=== PATIENT | female | born 1970 | race American Indian/Alaskan Native ===

== ENCOUNTER 2017-11-18 13:33 | Emergency (ER) | payer SELFPAY ==
--- NOTE | 2017-11-18 15:51 | XRay Report ---
LEFT KNEE RADIOGRAPHS INDICATION: Pain, swelling, redness. COMPARISON: None similar. FINDINGS: AP, lateral and oblique left knee radiographs demonstrate moderate to severe medial and patellofemoral compartment narrowing with degenerative spurring. Small suprapatellar effusion. CONCLUSION: Moderate to severe osteoarthritic changes, advanced for the patient's age, as described. Please correlate. Thank you for the opportunity to participate in this patient's care.
--- NOTE | 2017-11-18 19:24 | Emergency Department Report ---
ED Extremity Problem HPI - General Chief complaint: Extremity Problem,Nontraumatic Stated complaint: LEFT SWOLLEN LEG WITH TINGLING Time Seen by Provider: 11/18/17 18:50 Source: patient Mode of arrival: Ambulatory Limitations: No Limitations - History of Present Illness Initial comments: This is a 47-year-old female here with left knee pain 1 week. She has a history of total knee replacements her right knee due to arthritis. She denies any injury. She reports swelling with some redness. She says she took over-the -counter pain medication without any relief. Pain is 8 out of 10 and worse with flexion and extension. Pain is achy. Better at rest then. Patient is here to be evaluated. MD Complaint: joint swelling, joint paint Onset/Timin -: week(s) Location: left, knee History of Same: Yes -: No myalgia, Yes arthralgia, No fever, No associated dyspnea, No associated chest pain Radiation: none Severity scale (0 -10): 8 Quality: aching Consistency: constant Improves with: rest Worsens with: weight bearing, walking, exertion Associated Symptoms: arthralgias. denies: chest pain, shortness of breath, fever, myalgias, rash - Related Data Previous Rx's Medication Instructions Recorded Last Taken Type oxyCODONE /ACETAMINOPHEN [Percocet 1 tab PO Q6HR PRN #30 tablet 09/19/15 Unknown Rx 5/325] traMADol [Ultram] 50 mg PO Q6HR PRN #12 tablet 11/18/17 Unknown Rx Allergies Allergy/AdvReac Type Severity Reaction Status Date / Time latex AdvReac rash, Verified 09/19/15 11:52 itching, burning ED Review of Systems ROS: Stated complaint: LEFT SWOLLEN LEG WITH TINGLING Other details as noted in HPI Constitutional: denies: chills, fever Eyes: denies: eye pain, eye discharge Respiratory: denies: cough, shortness of breath, SOB with exertion, SOB at rest , stridor, wheezing Cardiovascular: denies: chest pain, palpitations, edema, syncope Gastrointestinal: denies: abdominal pain, nausea, vomiting, diarrhea Genitourinary: denies: urgency, dysuria, discharge Musculoskeletal: joint swelling, arthralgia. denies: back pain, myalgia Skin: denies: rash, lesions Neurological: abnormal gait (patient says she is limping on the left lower extremity). denies: headache, weakness, numbness, paresthesias, vertigo ED Past Medical Hx - Past Medical History Previous Medical History?: Yes Hx Arthritis: Yes - Surgical History Past Surgical History?: Yes Additional Surgical History: R knee replacement - Family History Family history: hypertension - Social History Smoking Status: Never Smoker Substance Use Type: Alcohol - Medications Home Medications: Home Medications Medication Instructions Recorded Confirmed Last Taken Type oxyCODONE /ACETAMINOPHEN [Percocet 1 tab PO Q6HR PRN #30 tablet 09/19/15 Unknown Rx 5/325] traMADol [Ultram] 50 mg PO Q6HR PRN #12 tablet 11/18/17 Unknown Rx ED Physical Exam - General Limitations: No Limitations General appearance: alert, in no apparent distress - Head Head exam: Present: atraumatic, normocephalic, normal inspection - Eye Eye exam: Present: normal appearance, PERRL, EOMI Pupils: Present: normal accommodation - ENT ENT exam: Present: normal exam, normal orophraynx, mucous membranes moist - Neck Neck exam: Present: normal inspection, full ROM. Absent: tenderness, lymphadenopathy - Respiratory Respiratory exam: Present: normal lung sounds bilaterally. Absent: respiratory distress, chest wall tenderness - Cardiovascular Cardiovascular Exam: Present: regular rate, normal rhythm, normal heart sounds. Absent: systolic murmur, diastolic murmur, rubs, gallop - GI/Abdominal GI/Abdominal exam: Present: soft, normal bowel sounds - Extremities Exam Extremities exam: Present: normal inspection - Back Exam Back exam: Present: normal inspection - Neurological Exam Neurological exam: Present: alert, oriented X3 - Psychiatric Psychiatric exam: Present: normal affect, normal mood - Skin Skin exam: Present: warm, dry, intact, normal color. Absent: rash ED Course Vital Signs 11/18/17 14:44 Temperature 98.4 F Pulse Rate 104 H Respiratory 18 Rate Blood Pressure 157/96 O2 Sat by Pulse 98 Oximetry Vital Signs 11/18/17 11/18/17 14:44 20:43 Temperature 98.4 F Pulse Rate 104 H 82 Respiratory 18 Rate Blood Pressure 157/96 O2 Sat by Pulse 98 Oximetry - Reevaluation(s) Reevaluation #1: 11/18/17 20:43 She received Motrin 800 mg by mouth 1 in emergency room. See procedure note for details on splinting. - Orthopedic Splinting/Casting Injury #1 Side: left Lower Extremity Injury Location: knee Lower Extremity Immobilizer: Urban wrap ED Medical Decision Making - Radiology Data Radiology results: report reviewed - Medical Decision Making ED course: This is a 47-year-old patient here for complaints of left knee pain with swelling over week time. She stated over the Klonopin medication without any relief. She has a history of arthritis with right total knee replacement in the past. She denies any fever or chills. She is here to be evaluated She was seen and examined by myself and she has limited range of motion to left knee due to pain and swelling. No difference in temperature when compared to right knee. Patient is afebrile. Her heart rate is stable at 82 bpm from 104 bpm. Patient had x-ray of left knee 3 views which was dictated by radiologist and report reviewed by myself and showed degenerative joint disease with mild effusion. No acute findings. I discussed results with patient and she voiced understanding. Patient was given Motrin which helped her pain in the emergency room. No concern for septic arthritis patient does not have any variation in temperature to knees, no erythema. No fever. A/P 1: Degenerative arthritis left knee-referred to orthopedic doctor 2: Arthralgia left knee-Motrin 800 mg by mouth 1 in the emergency room which relieved her pain and was sent home on Ultram 3: Mild left knee effusion-Urban wrap, referred to orthopedics Educated on medication, diagnosis and treatment plan. She voiced understanding. Referral orthopedic doctor Rice maria luisa Patient discharged home in stable condition. Vital signs are stable she is afebrile. She is nontoxic in appearance. Patient to follow-up with her primary care physician and orthopedic doctor in 2 days and/or return to emergency room if her symptoms worsens. She voiced understanding. Discharged home in stable condition with prescription for Ultram. Critical care attestation.: If time is entered above; I have spent that time in minutes in the direct care of this critically ill patient, excluding procedure time. ED Disposition Clinical Impression: Knee effusion, left Degenerative joint disease of left knee Qualifiers: Osteoarthritis type: unspecified Qualified Code(s): M17.12 - Unilateral primary osteoarthritis, left knee Knee pain, left Qualifiers: Chronicity: acute Qualified Code(s): M25.562 - Pain in left knee Disposition: DC-01 TO HOME OR SELFCARE Is pt being admited?: No Does the pt Need Aspirin: No Condition: Stable Instructions: Knee Effusion (ED), Osteoarthritis (ED), Knee Exercises (GEN), Knee Pain (ED), RICE Therapy (ED) Additional Instructions: See discharge instruction in Rice therapy Follow up with orthopedic doctor as instructed Follow up Primary care physician in 2 days Take Ultram for pain but please do not drive or operate heavy machinery while taking this medication as it causes drowsiness. If his symptoms worsen, return to the emergency room Prescriptions: traMADol [Ultram] 50 mg PO Q6HR PRN #12 tablet PRN Reason: Pain Referrals: PRIMARY CARE, [Primary Care Provider] - 3-5 Days Forms: Work/School Release Form(ED)
[2017-11-18] MEDS ORDERED: MOTRIN PO ONE (20:38)
[2017-11-18 20:47] VITALS: BP 152/96
== END 2017-11-18 21:00 | disposition home or self-care (01) ==
LOC: ED 13:33
DX: M17.12 Unilateral primary osteoarthritis, left knee (principal); M25.462 Effusion, left knee; Z91.040 Latex allergy status
CPT/HCPCS: 99284

== ENCOUNTER 2019-06-18 18:34 | Emergency (ER) | payer SELFPAY ==
[2019-06-18 18:50] VITALS: BP 219/136
--- NOTE | 2019-06-18 18:50 | Emergency Department Report ---
Chief Complaint: Psych Stated Complaint: SUICIDAL THOUGHTS - HPI History of Present Illness: 49 y/o F p/w a cc of SI. Pt states for several weeks she's had SI. Pt has plan to overdose on "pills" or "jump off of something." Pt denies any actual attempt at harming herself - Exam Vital Signs: Vital Signs 06/18/19 18:44 Temperature 98.5 F Pulse Rate 111 H Respiratory 40 H Rate Blood Pressure 219/136 Blood Pressure 219/136 [Left] O2 Sat by Pulse 98 Oximetry MSE screening note: Focused history and physical exam performed. Due to findings the following was ordered: ED Disposition for MSE Condition: Stable
[2019-06-18 19:15] LABS: Basophils # (Auto) 0.1 K/mm3 (0.0-0.1); Eosinophils # (Auto) 0.2 K/mm3 (0.0-0.4); Eosinophils % (Auto) 2.4 % (0.0-4.3); Hemoglobin 13.8 gm/dl (10.1-14.3); Lymphocytes # (Auto) 3.1 K/mm3 (1.2-5.4); Lymphocytes % (Auto) 44.1 % (13.4-35.0); Mean Corpuscular HGB Conc 34 % (30-34); Mean Corpuscular Volume 73 fl (79-97); Monocytes # (Auto) 0.8 K/mm3 (0.0-0.8); Monocytes % (Auto) 11.8 % (0.0-7.3); Platelet Count 349 K/mm3 (140-440); Red Blood Count 5.63 M/mm3 (3.65-5.03); Red Cell Distribution Width 16.5 % (13.2-15.2)
[2019-06-18 19:38] LABS: Alanine Aminotransferase 12 units/L (7-56); Albumin 4.3 g/dL (3.9-5); BUN/Creatinine Ratio 16; Blood Urea Nitrogen 13 mg/dL (7-17); Calcium 9.3 mg/dL (8.4-10.2); Hemolysis Index 5
== END 2019-06-18 21:30 | disposition left against medical advice (07) ==
LOC: ED 18:34
DX: R45.851 Suicidal ideations (principal)
CPT/HCPCS: 36415; 80053; 80320; 84703; 85025; 99283; G0480

== ENCOUNTER 2021-07-16 18:33 | Emergency (ER) | payer SELFPAY ==
[2021-07-16 18:52] VITALS: BP 175/99
[2021-07-16] MEDS ORDERED: DEXAMETHASONE 4 MG TAB PO ONE (20:42)
[2021-07-16] MEDS ORDERED: oxyCODONE /ACETAMINOPHEN 5-325MG TAB PO ONE (20:42)
[2021-07-16] MEDS ORDERED: KETOROLAC 10 MG TAB PO ONE (20:42)
--- NOTE | 2021-07-16 21:06 | Emergency Department Report ---
ED Extremity Problem HPI - General Chief complaint: Extremity Injury, Lower Stated complaint: LT ANKLE SWOLLEN Time Seen by Provider: 07/16/21 20:29 Source: patient Mode of arrival: Ambulatory Limitations: No Limitations - History of Present Illness Initial comments: 51-year-old black female with a past medical history of hypertension presents to the emergency department for evaluation of left foot and ankle pain and swelling. She states that a little over a year ago she had a left knee replacement and since then she has intermittent pain and swelling to her left ankle and foot. She states that this time pain and swelling started yesterday and has gotten progressively worse. She states that it feels like pain and swelling is worse this time than usual. She denies any injury. She denies chest pain, shortness of breath, and hemoptysis. MD Complaint: extremity pain, extremity swelling -: Gradual, days(s) (To) Location: left, lower extremity (Foot neck), other History of Same: Yes -: No fever, No associated dyspnea, No associated chest pain Radiation: none Severity scale (0 -10): 9 Quality: aching, sharp Consistency: constant Worsens with: walking, palpation Associated Symptoms: denies: chest pain, shortness of breath, fever, myalgias, arthralgias, rash - Related Data Home Medications Medication Instructions Recorded Confirmed Last Taken Albuterol Sulfate [Proventil Hfa] 2 puff IH PRN PRN 05/30/20 06/07/20 09/09/19 08:00 Atenolol/Chlorthalidone [Tenoretic 1 tab PO QDAY 05/30/20 06/07/20 06/06/20 08:00 50-25] Ferrous Sulfate [Iron 325 MG] 325 mg PO DAILY 05/30/20 06/07/20 06/05/20 08:00 Losartan [Cozaar] 25 mg PO QDAY 05/30/20 06/07/20 06/07/20 05:00 cloNIDine [Catapres] 0.1 mg PO PRN PRN 05/30/20 06/07/20 04/10/20 08:00 Previous Rx's Medication Instructions Recorded Last Taken Type Acetaminophen/Codeine [Tylenol 1 tab PO Q6H PRN #12 tab 07/16/21 Unknown Rx /Codeine # 3 tab] methylPREDNISolone [Medrol 4MG 4 mg PO DAILY #1 pack 07/16/21 Unknown Rx DOSEPAK (21 tabs)] Allergies Allergy/AdvReac Type Severity Reaction Status Date / Time latex AdvReac rash, Verified 09/19/15 11:52 itching, burning ED Review of Systems ROS: Stated complaint: LT ANKLE SWOLLEN Other details as noted in HPI Comment: All other systems reviewed and negative Constitutional: denies: chills, diaphoresis, fever, malaise Eyes: denies: eye pain ENT: denies: ear pain Respiratory: denies: cough, shortness of breath Cardiovascular: edema. denies: chest pain, palpitations, dyspnea on exertion, orthopnea, syncope, paroxysmal nocturnal dyspnea Endocrine: no symptoms reported Gastrointestinal: denies: abdominal pain, nausea, vomiting, diarrhea, hematemesis, melena, hematochezia Genitourinary: denies: urgency, dysuria, frequency, hematuria Musculoskeletal: joint swelling. denies: back pain Skin: denies: rash, lesions Neurological: denies: headache, weakness, numbness, paresthesias, confusion Psychiatric: denies: anxiety, depression Hematological/Lymphatic: denies: easy bleeding, easy bruising ED Past Medical Hx - Past Medical History Hx Hypertension: Yes Hx Renal Disease: No Hx Arthritis: Yes (JOINT PAIN) Hx Headaches / Migraines: Yes (MIGRAINES) Hx Asthma: Yes Hx HIV: No - Surgical History Hx Breast Surgery: Yes (BREAST BX) Additional Surgical History: R knee replacement - Social History Smoking Status: Never Smoker - Medications Home Medications: Home Medications Medication Instructions Recorded Confirmed Last Taken Type Albuterol Sulfate [Proventil Hfa] 2 puff IH PRN PRN 05/30/20 06/07/20 09/09/19 08:00 History Atenolol/Chlorthalidone [Tenoretic 1 tab PO QDAY 05/30/20 06/07/20 06/06/20 08:00 History 50-25] Ferrous Sulfate [Iron 325 MG] 325 mg PO DAILY 05/30/20 06/07/20 06/05/20 08:00 History Losartan [Cozaar] 25 mg PO QDAY 05/30/20 06/07/20 06/07/20 05:00 History cloNIDine [Catapres] 0.1 mg PO PRN PRN 05/30/20 06/07/20 04/10/20 08:00 History Acetaminophen/Codeine [Tylenol 1 tab PO Q6H PRN #12 tab 07/16/21 Unknown Rx /Codeine # 3 tab] methylPREDNISolone [Medrol 4MG 4 mg PO DAILY #1 pack 07/16/21 Unknown Rx DOSEPAK (21 tabs)] ED Physical Exam - General Limitations: No Limitations - Head Head exam: Present: atraumatic, normocephalic - Eye Eye exam: Present: normal appearance. Absent: conjunctival injection - Neck Neck exam: Present: normal inspection. Absent: tenderness - Respiratory Respiratory exam: Present: normal lung sounds bilaterally. Absent: respiratory distress, wheezes, rales, rhonchi, stridor, chest wall tenderness, accessory muscle use - Cardiovascular Cardiovascular Exam: Present: regular rate, normal heart sounds - GI/Abdominal GI/Abdominal exam: Present: soft. Absent: distended, tenderness - Expanded Lower Extremity Exam Left Knee exam: Present: tenderness, swelling Lower Leg exam: Present: normal inspection Ankle exam: Present: tenderness, swelling. Absent: abrasion, ecchymosis, deformity, crepidus, dislocation, erythema Foot/Toe exam: Present: tenderness. Absent: swelling, dislocation, erythema Neuro vascular tendon exam: Absent: no vascular compromise, pulse deficit, abnormal cap refill, sensory deficit, extremity cold to touch Gait: Positive: observed and limited by pain - Back Exam Back exam: Absent: normal inspection - Neurological Exam Neurological exam: Present: alert, oriented X3 - Psychiatric Psychiatric exam: Present: normal affect, normal mood - Skin Skin exam: Present: warm, dry, intact, normal color ED Course Vital Signs 07/16/21 18:48 Temperature 98.8 F Pulse Rate 98 H Respiratory 22 Rate Blood Pressure 175/99 O2 Sat by Pulse 99 Oximetry ED Medical Decision Making - Medical Decision Making 51-year-old black female with a past medical history of hypertension presents to the emergency department for evaluation of left foot and ankle pain and swelling. She states that a little over a year ago she had a left knee replacement and since then she has intermittent pain and swelling to her left ankle and foot. She states that this time pain and swelling started yesterday and has gotten progressively worse. She states that it feels like pain and swelling is worse this time than usual. She denies any injury. She denies chest pain, shortness of breath, and hemoptysis. No acute abnormalities noted on assessment. Patient states this is the same type of pain and swelling that she usually has. She will be treated with steroids and pain medications. She is advised to follow-up with orthopedic nunes rgdenny for further evaluation and management. She was advised to return to the emergency department if worsening symptoms. She verbalized understanding of and agreement with plan of care. Critical care attestation.: If time is entered above; I have spent that time in minutes in the direct care of this critically ill patient, excluding procedure time. ED Disposition Clinical Impression: Pain and swelling of left ankle Disposition: HOME / SELF CARE / HOMELESS Is pt being admited?: No Does the pt Need Aspirin: No Condition: Stable Instructions: How to Use Cold Therapy, [id number], Musculoskeletal Pain, Ankle Pain, Joint Pain, [id number] Additional Instructions: Take medication as prescribed. Follow-up with orthopedics. Return to the emergency department for worsening symptoms. Prescriptions: methylPREDNISolone [Medrol 4MG DOSEPAK (21 tabs)] 4 mg PO DAILY #1 pack Acetaminophen/Codeine [Tylenol /Codeine # 3 tab] 1 tab PO Q6H PRN #12 tab PRN Reason: Pain , Severe (7-10) Referrals: FOZIA EUBANKS MD [Primary Care Provider] - 3-5 Days Forms: Work/School Release Form(ED) Time of Disposition: 21:06
== END 2021-07-16 21:35 | disposition home or self-care (01) ==
LOC: ED 18:33
DX: M25.572 Pain in left ankle and joints of left foot (principal); M25.472 Effusion, left ankle; I10 Essential (primary) hypertension; G43.909 Migraine, unspecified, not intractable, without status migrainosus; M19.90 Unspecified osteoarthritis, unspecified site; J45.909 Unspecified asthma, uncomplicated; Z98.890 Other specified postprocedural states
CPT/HCPCS: 99282; J8540